=== PATIENT | female | born 1970 | race Caucasian/White ===

== ENCOUNTER 2020-05-21 14:21 | Outpatient (CLI) | payer OTHER ==
[~2020-05-21 14:21] MED LIST: ACET-709 PO; birth control pill PO
== END 2020-05-21 23:59 | disposition home or self-care (01) ==
LOC: CFH 14:21
PROVIDERS: ATTEND Family Medicine
DX: Z12.31 Encounter for screening mammogram for malignant neoplasm of breast (principal)
CPT/HCPCS: 77063; 77067